=== PATIENT | female | born 1960 | race Caucasian/White ===

== ENCOUNTER 2024-10-16 13:34 | Emergency (ER) | payer MEDICARE, BC, SELFPAY ==
[2024-10-16 13:48] VITALS: BP 108/62; PULSE 73; RESP 16; TEMP 36.8; O2SAT 97; BMI 25.7
--- NOTE | 2024-10-16 14:04 | EKG_ITS ---
[address] [address] Test Date: 2024-10-16 Pat Name: Cara Hernandez Department: [facility] Room: Gender: Female Telephone Maintenance Mechanic: NAMITA : 1960 Requested By: Order Number: [id number] Reading MD: Roland Beach Measurements Intervals [place] Rate: 76 P: 33 [place]: 160 QRS: 45 QRSD: 86 T: 34 QT: 360 QTc: 405 Interpretive Statements Normal sinus rhythm Electronically Signed On 10-25-2024 18:49:28 PDT by Roland Beach
--- NOTE | 2024-10-16 14:36 | DI.CT.S_ITS ---
PROCEDURE: CT ABDOMEN PELVIS W CON INDICATIONS: abd pain TECHNIQUE: After the administration of intravenous contrast, axial sections acquired from the lung bases to the pubic symphysis. Coronal and sagittal reformats were performed. For radiation dose reduction, the following was used: automated exposure control, adjustment of mA and/or kV according to patient size. COMPARISON: None. FINDINGS: Image quality: Diagnostic. Lower Chest: No significant findings. ABDOMEN: Liver: No solid mass. Gallbladder: No radiopaque gallstones or wall thickening. Biliary ducts: No biliary dilation. Pancreas: No ductal dilation. Spleen: Size is within normal limits. Adrenal Glands: No adrenal nodules. Kidneys and Ureters: No hydronephrosis. No solid mass. No complex renal cystic lesion which requires follow up. Small right renal simple cortical cysts Stomach and Bowel: Multiple diverticula arise from the sigmoid colon. There is wall thickening and pericolonic inflammatory change in the mid sigmoid consistent with acute diverticulitis. No evidence of abscess or free air. No obstruction. Appendectomy. Peritoneum: No abnormal intraperitoneal fluid. No free air. Ventral Wall: No significant ventral hernia. Abdominal Nodes: No retroperitoneal or mesenteric adenopathy by size criteria. Vessels: Aorta and inferior vena cava are normal in size. PELVIS: Pelvic Organs: Unremarkable. Bladder: No bladder wall thickening, accounting for underdistention. Pelvic Nodes: No enlarged lymph nodes. Miscellaneous: No inguinal hernias are seen. Bones: No aggressive osseous abnormality. IMPRESSION: Acute sigmoid diverticulitis without evidence of abscess or obstruction. Approved by: Dominick Garcia M.D. on 10/16/2024 at 14:47
[2024-10-16 14:46] LABS: Add Manual Diff / Slide Review NO; Basophils Absolute Auto 100 /uL (0-100); Basophils Percent Auto 0.6 % (0-2); Eosinophils Absolute Auto 100 /uL (0-450); Eosinophils Percent Auto 0.6 % (2-4); Hematocrit 44.2 % (36-46); Hemoglobin 14.7 g/dL (12.0-16.0); Lymphocytes Absolute Auto 1600 /uL (1100-4500); Lymphocytes Percent Auto 13.5 % (25-40); Mean Corpuscular HGB Conc 33.3 % (30-36); Mean Corpuscular Hemoglobin 28.8 PG (26-34); Mean Corpuscular Volume 86.5 fL (80-100); Monocytes Absolute Auto 900 /uL (0-900); Monocytes Percent Auto 7.8 % (3-14); Neutrophils Absolute Auto 9200 /uL (1500-7000); Neutrophils Percent Auto 77.5 % (50-75); Platelet Count 255 X10^3/uL (150-400); Red Blood Cell Count 5.11 X10^6/uL (4.0-5.2); Red Cell Distribution Width 13.3 % (11.6-14.8); White Blood Cell Count 11.8 X10^3/uL (4.5-11.0)
[2024-10-16 15:12] LABS: Urine Volume 10mL (spun)
[2024-10-16 15:13] VITALS: BP 121/62; PULSE 78; O2SAT 97
[2024-10-16 15:13] LABS: Amorphous Sediment Urine 1+; Bacteria Urine None Seen; Culture Indicated Urine Cult Not Indicated; RBC Urine None Seen (0-5/HPF); Squamous Epithelial Cell Urine None Seen (0-5/HPF); WBC Urine None Seen (0-5/HPF)
--- NOTE | 2024-10-16 15:22 | ED_ITS ---
HPI - Abdominal Pain General Chief Complaint: Abdominal Pain Stated Complaint: May have Diverticulitis flare up Time Seen by Provider: 10/16/24 14:36 Source: patient Mode of arrival: Ambulatory History of Present Illness HPI narrative: 64-year-old female history of high blood pressure hypothyroidism appendectomy presents with diffuse abdominal pain last night after having white wine. She also has a history of diverticulitis and it flared up last fall and it reminded her of the identical pain that she is having now. Denies hematuria blood in the stool fever chills nausea vomiting or constipation. Other than what is stated 14 point review of system is negative Related Data Home Medications Medication Instructions Recorded Confirmed losartan 25 mg tablet 25 mg PO DAILY 10/16/24 10/16/24 thyroid (pork) 30 mg tablet (SLOT [employer] PERSON 30 mg PO DAILY 10/16/24 10/16/24 Thyroid) Previous Rx's Medication Instructions Recorded ciprofloxacin HCl 500 mg tablet 500 mg PO Q12H #14 tabs 10/16/24 hydrocodone 5 mg-acetaminophen 325 1 tab PO Q6H PRN pain #20 tabs 10/16/24 mg tablet metronidazole 500 mg tablet 500 mg PO Q8H #21 tabs 10/16/24 Allergies Allergy/AdvReac Type Severity Reaction Status Date / Time prochlorperazine Allergy Severe Anaphylaxis Verified 10/16/24 13:54 [From Compazine] Review of Systems Review of Systems ROS Unobtainable: All systems reviewed & are unremarkable except as noted in HPI and below Patient History Medical History (Updated 10/16/24 @ 16:02 by Jony Pendleton, ) Hypothyroid Depression Hypertension Social History Smoking Status: Current some day smoker Smoking Status: Current some day smoker Exam Narrative Exam Narrative: GENERAL: [64] year old patient appears stated age. Well-developed patient, in mild distress. HEAD: Atraumatic. Normocephalic. EYES: Pupils equal round and reactive. Extraocular motions intact. No scleral icterus. No injection or drainage. ENT: Nose without bleeding, purulent drainage. Throat without erythema, tonsillar hypertrophy or exudate. Airway patent. NECK: Trachea midline. Non tender CARDIOVASCULAR: Regular rate and rhythm without murmurs, gallops, or rubs. RESPIRATORY: Clear to auscultation. Breath sounds equal bilaterally. No wheezes, rales, or rhonchi. GASTROINTESTINAL: Abdomen soft, LLQ TTP no r/r/g, nondistended. EXTREMITIES: No edema or joint tenderness. BACK: Nontender without deformity or crepitance. No flank tenderness. NEURO: AOx3. SKIN: No rash or erythema of visible areas Initial Vital Signs Initial Vital Signs: Vital Signs Temperature 98.3 F 10/16/24 13:48 Pulse Rate 73 10/16/24 13:48 Respiratory Rate 16 10/16/24 13:48 Blood Pressure 108/62 10/16/24 13:48 Pulse Oximetry 97 10/16/24 13:48 Oxygen Delivery Method Room Air 10/16/24 13:48 Course Orders Ordered: ED Orders 10/16/24 13:57 Stool Culture Stat 10/16/24 13:58 EKG-12 Lead Stat 10/16/24 14:18 Complete Blood Count AUTO DIFF Stat Comprehensive Metabolic Panel Stat Lipase Stat Troponin I Stat 10/16/24 14:32 Urine Microscopic Stat 10/16/24 14:36 CT abdomen pelvis w con Stat Discontinued Medications Ondansetron HCl (Ondansetron 4 Mg/2 Ml Inj) 4 mg IV NOW ONE Stop: 10/16/24 13:57 Last Admin: 10/16/24 15:19 Dose: Not Given Documented By: SPF Vital Signs Vital signs: Vital Signs - 8 hr 10/16/24 13:48 Temperature 98.3 F Pulse Rate 73 Respiratory Rate 16 Blood Pressure 108/62 Pulse Oximetry 97 Oxygen Delivery Method Room Air MDM - Abdominal Pain Lab Data 10/16/24 14:18 10/16/24 14:18 Labs: Lab Results 10/16/24 10/16/24 Range/Units 14:18 14:32 WBC 11.8 H (4.5-11.0) X10^3/uL RBC 5.11 (4.0-5.2) X10^6/uL Hgb 14.7 (12.0-16.0) g/dL Hct 44.2 (36-46) % MCV 86.5 (80-100) fL MCH 28.8 (26-34) PG MCHC 33.3 (30-36) % RDW 13.3 (11.6-14.8) % Plt Count 255 (150-400) X10^3/uL Neut % (Auto) 77.5 H (50-75) % Lymph % (Auto) 13.5 L (25-40) % [place] % (Auto) 7.8 (3-14) % Eos % (Auto) 0.6 L (2-4) % Baso % (Auto) 0.6 (0-2) % Neut # (Auto) 9200 H (7768-6139) /uL Lymph # (Auto) 1600 (8039-7311) /uL [place] # (Auto) 900 (0-900) /uL Eos # (Auto) 100 (0-450) /uL Baso # (Auto) 100 (0-100) /uL Urine RBC None seen (0-5/HPF) Urine WBC None seen (0-5/HPF) Ur Squamous Epith Cells None seen (0-5/HPF) Amorphous Sediment 1+ Urine Bacteria None seen (None) Ur Culture Indicated? Cult not indicated Vol Urine Centrifuged 10ml (spun) Point of care testing: Urine Dip Bedside Urine Glucose Negative Bedside Urine Bilirubin - Negative Bedside Urine Ketone ++ 40 Urine Specific [place] 1.020 Bedside Urine Occult Blood - Negative Bedside Urine pH 5.5 Bedside Urine Protein - Negative Bedside Urine Urobilinogen - Negative Bedside Urine Nitrite - Negative Bedside Urine Leukocytes - Negative Esterase Imaging Data CT scan - abdomen/pelvis: Radiologist's Impression: [place] [address] CT Scan Report Signed Patient: Cara Hernandez MR#: [id number] : 1960 Acct:[id number] Age/Sex: 64 / F Date of Service: 10/16/24 Loc: ED Accession Number: [id number] Procedure: CT abdomen pelvis w con Ordering Provider: Jony Pendleton D.O. PROCEDURE: CT ABDOMEN PELVIS W CON INDICATIONS: abd pain TECHNIQUE: After the administration of intravenous contrast, axial sections acquired from the lung bases to the pubic symphysis. Coronal and sagittal reformats were performed. For radiation dose reduction, the following was used: automated exposure control, adjustment of mA and/or kV according to patient size. COMPARISON: None. FINDINGS: Image quality: Diagnostic. Lower Chest: No significant findings. ABDOMEN: Liver: No solid mass. Gallbladder: No radiopaque gallstones or wall thickening. Biliary ducts: No biliary dilation. Pancreas: No ductal dilation. Spleen: Size is within normal limits. Adrenal Glands: No adrenal nodules. Kidneys and Ureters: No hydronephrosis. No solid mass. No complex renal cystic lesion which requires follow up. Small right renal simple cortical cysts Stomach and Bowel: Multiple diverticula arise from the sigmoid colon. There is wall thickening and pericolonic inflammatory change in the mid sigmoid consistent with acute diverticulitis. No evidence of abscess or free air. No obstruction. Appendectomy. Peritoneum: No abnormal intraperitoneal fluid. No free air. Ventral Wall: No significant ventral hernia. Abdominal Nodes: No retroperitoneal or mesenteric adenopathy by size criteria. Vessels: Aorta and inferior vena cava are normal in size. PELVIS: Pelvic Organs: Unremarkable. Bladder: No bladder wall thickening, accounting for underdistention. Pelvic Nodes: No enlarged lymph nodes. Miscellaneous: No inguinal hernias are seen. Bones: No aggressive osseous abnormality. IMPRESSION: Acute sigmoid diverticulitis without evidence of abscess or obstruction. ECG Data Attestation: I personally reviewed and interpreted this ECG as follows: Interpretation: NSR HR 76 CA 160 QRS [address]- t wave change Normal axis No previous ekg to compare MDM Narrative Medical decision making narrative: All lab work, and CT scan all reviewed. Vital signs, medication list, nurse triage note, old records all reviewed. Patient given normal saline 1 L bolus Toradol 15 mg. D/c home norco, Cipro and Flagyl here. Differential diagnosis diverticulitis, perforation, abscess, pancreatitis, UTI, constipation, kidney stone, kidney infection. Patient will be discharged on Cipro Flagyl clear liquid diet advance as tolerated. Discharge Plan Departure Patient Disposition: Home Clinical Impression: Diverticulitis Instructions: Diverticulitis Activity Restrictions/Additional Instructions: Return with new or worsening symptoms. Take your medicines as directed. Clear liquids advance as tolerated. Prescriptions: New ciprofloxacin HCl 500 mg tablet 500 mg PO Q12H Qty: 14 0RF metronidazole 500 mg tablet 500 mg PO Q8H Qty: 21 0RF hydrocodone-acetaminophen 5-325 mg tablet 1 tab PO Q6H PRN (Reason: pain) Qty: 20 0RF No Action losartan 25 mg tablet 25 mg PO DAILY thyroid (pork) [[employer]OT [employer] PERSON Thyroid] 30 mg tablet 30 mg PO DAILY Stand Alone Forms: Patient Portal/API/Survey
[2024-10-16 15:24] LABS: Alanine Aminotransferase 21 IU/L (<35); Albumin 4.5 g/dL (3.5-5.0); Albumin Globulin Ratio 1.5 (1.0-2.8); Alkaline Phosphatase 96 U/L (38-126); Aspartate Aminotransferase 26 IU/L (14-36); BUN Creatinine Ratio 20.3 (6-22); Bilirubin Total 1.1 mg/dL (0.2-1.3); Blood Urea Nitrogen 15 mg/dL (7-17); Calcium 9.9 mg/dL (8.4-10.2); Carbon Dioxide 23 mmol/L (22-32); Chloride 102 mmol/L (98-107); Estimated Glomerular Filt Rate > 60 mL/min (>60); Globulin 3.1 g/dL (1.7-4.1); Glucose 90 mg/dL (80-110); HEMOLYSIS < 15 (0-50); Lipase 78 U/L (23-300); Potassium 4.2 mmol/L (3.4-5.1); Sodium 137 mmol/L (137-145); Total Protein 7.6 g/dL (6.3-8.2)
[2024-10-16 15:30] VITALS: BP 106/59; PULSE 74; RESP 17; O2SAT 96
[2024-10-16 15:36] LABS: Troponin I < 0.012 ng/mL (0.01-0.034)
[2024-10-16] MEDS: KETOROLAC 30 MG/ML VIAL 15 MG IV (15:55)
[2024-10-16 16:00] VITALS: BP 111/61; PULSE 69; O2SAT 95
[2024-10-16 16:30] VITALS: BP 110/61; PULSE 70; O2SAT 95
[2024-10-16 16:35] VITALS: BP 114/63; PULSE 72; O2SAT 96
[2024-10-16] MEDS: CIPROFLOXACIN 250 MG TABLET 500 MG PO (16:35)
[2024-10-16] MEDS: metroNIDAZOLE 500 MG TABLET PO (16:36)
== END 2024-10-16 16:45 | disposition home or self-care (01) ==
PROVIDERS: Emergency Provider Family Medicine
DX: K57.92 Diverticulitis of intestine, part unspecified, without perforation or abscess without bleeding (principal)
CPT/HCPCS: 36415; 74177; 80053; 81003; 81015; 83690; 84484; 85025; 93005; 96374; 99284; J1885; Q9967